=== PATIENT | female | born 1950 | race Caucasian/White ===

== ENCOUNTER 2019-01-28 05:10 | Day surgery (SDC) | payer OTHER ==
[~2019-01-28] VITALS: Ht 152.4 cm; Wt 136.1 kg
[2019-01-28] MEDS ORDERED: LR 1,000 ML IV SCH (08:19)
[2019-01-28] MEDS ORDERED: METOCLOPRAMIDE HCL 10 MG/2 ML VIAL IVP PRN (08:30)
[2019-01-28] MEDS ORDERED: MEPERIDINE HCL/PF 50 MG/ML AMP IVP PRN ×2 (08:30)
[2019-01-28] MEDS ORDERED: MEPERIDINE HCL/PF 25 MG/ML DISP.SYRIN IVP PRN (08:30)
[2019-01-28] MEDS ORDERED: LR 1,000 ML IV.SOLN IV ONE (08:40)
[2019-01-28] MEDS ORDERED: fentaNYL CITRATE/PF 100 MCG/2 ML AMP ONE (08:40)
[2019-01-28] MEDS ORDERED: NS IRRIG SOLN 1000 ML IR ONE (08:40)
[2019-01-28] MEDS ORDERED: SIMETHICONE 40 MG/0.6 ML ML ONE (08:40)
[2019-01-28] MEDS ORDERED: MIDAZOLAM HCL 5 MG/ML VIAL (VERSED) IV ONE (08:40)
[2019-01-28 09:32] VITALS: BP_SYST 118
== END 2019-01-28 11:20 | disposition home or self-care (01) ==
LOC: SMU 05:10 → SDS 05:10
PROVIDERS: ATTEND Colon & Rectal Surgery
DX: K62.89 Other specified diseases of anus and rectum (principal); D12.0 Benign neoplasm of cecum; K62.1 Rectal polyp; K21.9 Gastro-esophageal reflux disease without esophagitis; K57.30 Diverticulosis of large intestine without perforation or abscess without bleeding; E66.01 Morbid (severe) obesity due to excess calories
CPT/HCPCS: 45380; 88305; J2250; J3010; J7120